=== PATIENT | male | born 1960 | race Caucasian/White ===

== ENCOUNTER → 2023-08-07 08:38 | Outpatient (POV) | payer MEDICARE, SELFPAY ==
--- NOTE | 2023-08-07 08:43 | A.OFFVIS_ITS ---
HPI Data of Consult Patient: new to practice Consult date: 08/07/23 Requesting Physician: Clara Olivares APRN Consult Narrative Reason for consult: Low back pain History of present illness: Mr. Zarate is a 62 year old male who presents today as a new patient. He is a referral from [facility]. Today he rates his pain a 7 out of 10. Patient states his pain is all in his low back with radiating symptoms into his lower extremities. He does describe this as a constant aching, throbbing, sharp sensation with numbness and tingling. He does state that frequently he experiences weakness into his lower extremities and has had multiple falls due to his legs giving out. Patient states this is all related to an injury that he experienced in 1996 where he fell out of a truck. Patient states he did end up having surgery in 1997 on his back having a discectomy as well as knee surgery and lower left leg surgery. Patient states he ended up having a total of 6 left knee surgeries and has chronic pain due to this. Patient has tried [id number] Tylenol and ibuprofen along with heat and ice and topicals with minimal relief. Patient states he did have physical therapy years ago however this worsened his pain. He also states that he has had injections in the past however had no improvement. Patient states that he was with 2 previous pain doctors. He states Dr. Levine office had to close due to not having enough staff and then Dr. Dorman got in trouble and was eventually shut down. Patient is currently on Percocet 10 mg 4 times a day and gabapentin 300 mg 9 times a day from an outside provider. His Sanford has been reviewed. CC: Clara Olivares APRN [facility] Disclaimer: The information contained in this section may have been updated after the patient was seen, as this information can be updated by other users. Medical History (Updated 08/07/23 @ 09:48 by Clara Olivares APRN) Depression GERD (gastroesophageal reflux disease) Gout HLD (hyperlipidemia) HTN (hypertension) Insomnia Surgical History (Updated 08/07/23 @ 09:27 by Pearl Pacheco RN) H/O left knee surgery H/O lumbar discectomy Family History (Updated 08/07/23 @ 09:26 by Pearl Pacheco RN) Other Unknown family medical history Social History Smoking Status: Never smoker alcohol intake: never current occupational status: unemployed Travel in the last 8 weeks: None Review of Systems Review of Systems Review of systems:: pertinent systems reviewed and negative unless documented below Review of systems (narrative): review of Systems: General: No recent weight changes, no fever, no sleep disturbances Respiratory: No cough, no shortness of air, no recurring pulmonary infections Cardiovascular/peripheral vascular: No chest pain, no palpitations, no edema, no shortness of breath Gastrointestinal: No new onset incontinence, normal bowel movements reported Genitourinary: No new onset incontinence Musculoskeletal: Low back pain, bilateral leg pain Psychiatric: [Normal mood/affect] Neurological: [Denies weakness in extremities], [denies balance issues] Meds Home Medications and Allergies Home Medications Medication Instructions Recorded Confirmed Type allopurinol 100 mg tablet 100 mg PO DAILY GOUT 08/07/23 08/07/23 History atorvastatin 20 mg tablet 20 mg PO DAILY High Cholesterol 08/07/23 08/07/23 History bupropion HCl 150 mg 24 hr tablet, 150 mg PO DAILY MOOD 08/07/23 08/07/23 History extended release gabapentin 300 mg capsule 900 mg PO TIDP PRN Pain 08/07/23 08/07/23 History losartan 100 mg tablet 100 mg PO DAILY High Blood Pressure 08/07/23 08/07/23 History metoprolol succinate 50 mg 50 mg PO DAILY High Blood Pressure 08/07/23 08/07/23 History tablet,extended release 24 hr mirtazapine 15 mg tablet 30 mg PO DAILY MOOD 08/07/23 08/07/23 History oxycodone-acetaminophen 10 mg-325 1 tab PO QIDP PRN Pain 08/07/23 08/07/23 History mg tablet pantoprazole 40 mg tablet,delayed 40 mg PO DAILY GERD 08/07/23 08/07/23 History release tizanidine 4 mg tablet 4 mg PO DIRECTED Pain 08/07/23 08/07/23 History trazodone 100 mg tablet 100 mg PO DAILY SLEEP 08/07/23 08/07/23 History New Prescriptions to Start Prescriptions: Allergies Allergy/AdvReac Type Severity Reaction Status Date / Time No Known Allergies Allergy Unverified 07/11/17 14:17 Objective Narrative: Physical Exam: General: Alert and oriented x3, no acute distress, pleasant and cooperative Lungs: Respirations even and unlabored, symmetrical chest expansion Eyes: PERRL Musculoskeletal: Flexion and extension of lumbar [spine] somewhat guarded seco ndary to pain, [antalgic gait noted] extreme point tenderness along lower lumbar region and bilateral SIs Neurological: Speech clear, no gross sensory deficit Additional findings Additional findings: MRI lumbar spine without contrast 12/03/2016 Findings: There is transitional lumbosacral anatomy with residual small intervertebral disc space at S1-S2. S1 will therefore be considered a partially lumbarized vertebral body with a 5 nonrib-bearing morphology typical lumbar type vertebral bodies above this level. There is no fracture. No marrow replacing process. Conus terminates at L1 and distal cord is in the paravertebral soft tissues are normal. T12-L1: No canal or foraminal narrowing. L1-2: Shallow left paracentral disc protrusion mildly effaces the thecal sac without foraminal stenosis. This is minimally changed. L2-3: No canal or foraminal narrowing L3-4: Broad-based disc bulge with endplate osteophytes and mild bilateral facet disease results in mild central canal stenosis with at most mild bilateral narrowing. Modic type II endplate changes are noted at this level. This is similar to previous exam. L4-5: Broad-based disc bulge and mild to moderate bilateral facet disease results in mild canal stenosis with mild bilateral neuroforaminal narrowing unchanged L5-S1: Right paracentral disc protrusion effaces the right lateral recess, likely impinging on the descending right S1 nerve root and contributes to overall mild central canal stenosis. Superimposed moderate right and mild left facet disease. Mild left foraminal narrowing. This appears minimally changed from the previous exam. Assessment and Plan *Assessment and plan (1) Degenerative disc disease, lumbar: Status: Acute Category: Medical Code(s): M51.36 - Other intervertebral disc degeneration, lumbar region (2) Lumbar radiculopathy: Status: Acute Category: Medical Code(s): M54.16 - Radiculopathy, lumbar region (3) Chronic pain syndrome: Status: Acute Category: Medical Code(s): G89.4 - Chronic pain syndrome Plan Patient is experiencing significant pain in his low back and legs with limited range of motion of his lumbar spine and extreme point tenderness along his lower lumbar region and bilateral SIs during today's exam. I have discussed with the patient that he may benefit from injection therapy however he is not interested in this option. I have also gone over the risk and benefits of the intrathecal pain pump trial and educational handouts were given at today's visit. 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 Patient states that he lost his at the end of last year and that his son does not drive. Patient states he has no other family except for in [place] and that his neighbors all work very early in the morning till evening. I have counseled the patient that we are an interventional pain clinic and we do not write any scheduled medications for new patients. Patient will return to clinic in 1 month for reevaluation of symptoms and plan of care. Patient has been instructed to contact the clinic with any concerns before the next appointment. Dr. Presley has reviewed this note and agrees with this plan of care. This note was dictated using voice recognition software and make contain errors or omissions.
--- OUTSIDE RECORDS SUMMARY | 2023-08-07 08:43 | XMS_ITS | Patient Health Record ---
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 They have not been cleared or approved by the US Food and Drug Administration. 6MAM Ur Ql Cfm <10 >=10 ng/mL NONE DETECTED Amphetamines Ur Ql Cfm <100 >=100 ng/mL NONE DETECTED Benzodiaz Ur Ql Cfm <50 >=50 ng/mL NONE DET ECTED Buprenorphine Ur Ql Cfm <1 >=1 ng/mL NONE DETECTED BZE Ur Ql Cfm <50 >=50 ng/mL NONE DETECTED Fentanyl+Norfentanyl Ur Ql Cfm <5 >=5 ng/mL NONE DETECTED Carisoprodol+Meprob Ur Ql Scn <200 >=200 ng/mL NONE DETECTED Methadone Ur Ql Cfm <200 >=200 ng/mL NONE DET ECTED Opiates Ur Ql Cfm >=100 >=100 ng/mL POSITIVE Oxymorphone Ur Cfm-mCnc 743 >=100 ng/mL POSI TIVE Noroxycodone Ur Cfm-mCnc 338 >=100 ng/mL POS ITIVE Oxycodone Ur Cfm-mCnc 596 >=100 ng/mL POSITI VE REASON FOR REFERRAL Reason SURGICAL EVAL OF LUM BAR SPINE Diagnosis 1 Lumbar spondylosis ( M47.816) Referral Organization [facility] Referring Provider First Name Sharona Referring Provider Last Name Bruno Referring Provider Speciality Nurse Malika diaz Referred Provider Alexei Barrera Referred Provider Specialty Orthopedic S urgery Referral Priority Routine MEDICATIONS Medication SIG (Take, Route, Frequency, Duration) Notes Start Date End Date Status Atorvastatin Calcium 10 MG 1 tablet Orally Once a day for 30 day(s) Active traZODone HCl 50 MG 1 tablet at bedtime as needed Orally Once a day for 30 day(s) Active Pantoprazole Sodium 20 MG 1 tablet Orall y Once a day for 30 day(s) Active tiZANidine HCl 2 MG 1 tablet as needed Orally Three times a day Active Allopurinol 100 MG 1 tablet Orally Once a day for 30 day(s) Active Aspirin 81 MG 1 tablet Orally Once a day for 30 day(s) Active Losartan Potassium 25 MG 1 tablet Orally Once a day for 30 day(s) Active Tylenol 8 Hour 650 MG 2 tablets as neede d Orally every 8 hrs PRN Active Metoprolol Succinate 25 MG 1 capsule Orally Once a day for 30 day(s) Active Gabapentin 100 MG 1 capsule Orally Onc e a day for 30 day(s) Active Mirtazapine 15 MG 1 tablet at bedtime Orally Once a day for 30 day(s) Active Aleve 220 MG 1 tablet with food o r milk as needed Orally every 12 hrs Active oxyCODONE HCl 10 MG 1 tablet as needed Orally every 6 hrs 4X PER DAY Active SOCIAL HISTORY Sex Assigned At : Social History Observation Description Sex Assigned At Unknown PROBLEMS Problem Type ICD Code Onset Dates Problem Status W/U Status Risk SNOMED Code Notes Problem Chronic pain syndrome (G89.4) Active confirmed 510743656 Problem Degeneration of lumbar or lumbosacral intervertebral disc (M51.37) Active confirmed 24436347 Problem Lumbar spondylosis (M47.816) Active confirmed 912901105 Problem Continuous opioid dependence (F11.20) Active confirmed 267720161 VITAL SIGNS Heart Rate 74 /min 06/22/2023 Oximetry 96 % 06/22/2023 Blood pressure diastolic 94 mm Hg 06/22/2023 Height 70 in 06/22/2023 Blood pressure systolic 165 mm Hg 06/22/2023 Weight 245.4 lbs 06/22/2023 BMI 35.21 kg/m2 06/22/2023 Encounters Encounter Location Date Provider Diagnosis [facility] [address] [address] 06/22/2023 Sharona Bruno Lumbar spondylosis M47.816 ; Degeneration of lumbar or lumbosacral intervertebral disc M51.37 ; Pain, joint, knee, left M25.562 ; Chronic pain syndrome G89.4 and Continuous opioid dependence F11.20 ASSESSMENTS Encounter Date Diagnosis Assessment Notes Treatment Notes Treatment Clinical Notes 06/22/2023 Degeneration of lumbar or lumbosacral intervertebral disc (ICD-10 - M51.37) 06/22/2023 Lumbar spondylosis (ICD-10 - M47.816) 06/22/2023 Pain, joint, knee, left (ICD-10 - M25.562) 06/22/2023 Chronic pain syndrom e (ICD-10 - G89.4) 06/22/2023 Continuous opioid dependence (ICD-10 - F11.20) 06/22/2023 Other ORDER MRI LUMBAR IMAGING AND PLACE REFERRAL TO DR BARRERA FOR SURGICAL OPINION. Former patient of [facility]PS with Dr. Hernandez and Abner. Recommended PT for him. Continue HOME EXERCISE PROGRAM. SCS Info given to him along with ITP info. He states that he tried SCS with David and did not get any relief. He is not interested in procedures. He has never had surgical eval since having one surgery with Dr. Roldan. Uncertain what level operated on. He is on Percocet 10/325mg QID and Gabapentin 300mg 3 TID. No recent imaging other than Cervical Xray from 2019. MRI order from 2017. This does not warrant opioid Rx currently. UDS and Sanford performed. He states that his 2 months ago. He is not a good candidate for PPSC. Seen in consultation today with BAO Sarabia with care plan and medications reviewed by Dr. Martin. PLAN OF TREATMENT Pending Test Test Name Order Date [employer] [facility] Profile 06/22/2023 MRI LUMBAR SPINE WO CONTRAST 06/22/2023 Insurance Providers Payer Name Payer Address Payer Phone Subscriber Number Group Number Insured Name Patient Relationship to Insured Coverage Start Date Coverage End Date [employer] [address] [address] [place] [phone] [id number] Robert Zarate Self - patient is the insured 3 Medicare CGS Administrators [address] [phone] [id number] Robert Zarate Self - patient is the insured MEDICAL (GENERAL) HISTORY Medical History History ICD Code ARTHRITIS DEPRESSION ANXIETY HIGH BLOOD PRESSURE HIGH CHOLESTEROL Surgical History Surgery Date(Month/Year) GALLBLADDER BACK SURGERY 1998 LEFT KNEE SURGERY X6 1998
[2023-08-07 09:23] VITALS: BP 167/100; PULSE 78; RESP 18; O2SAT 95; BMI 33.7
== END ==
PROVIDERS: Visit Provider Nurse Practitioner Family
DX: G89.4 Chronic pain syndrome; M51.16 Intervertebral disc disorders with radiculopathy, lumbar region
CPT/HCPCS: 99202; G0463

== ENCOUNTER → 2023-09-14 08:20 | Outpatient (POV) | payer MEDICARE, SELFPAY ==
--- NOTE | 2023-09-14 08:59 | EXP.PAIN.SOA ---
[facility] Pain Management SOAP Note Subjective:: Patient is a pleasant 62-year-old male who presents today for follow-up. We are currently treating the patient for degenerative disc disease of lumbar spine with lumbar radiculopathy symptoms, lumbar spinal stenosis low back pain, chronic pain syndrome. Today he rates his pain a 9 out of 10. Patient denies any new injury or trauma. He states he continues to have constant pain at his low back that does interfere with his ability perform activities of daily living such as cooking and cleaning. Patient does have prior back surgery as well as trying and failing conservative treatment such as oral medication, heat and ice, topicals, physical therapy. Patient is prescribed Percocet 10 mg 4 times a day and gabapentin 300 mg 9 times a day from outside provider. He states this just helps take the edge off but does not really do a good job overall. His Sanford has been reviewed and is appropriate. Review of Systems: General: No recent weight changes, no fever, no sleep disturbances Respiratory: No cough, no shortness of air, no recurring pulmonary infections Cardiovascular/peripheral vascular: No chest pain, no palpitations, no edema, no shortness of breath Gastrointestinal: No new onset incontinence, normal bowel movements reported Genitourinary: No new onset incontinence Musculoskeletal: Low back pain Psychiatric: [Normal mood/affect] Neurological: [Denies weakness in extremities], [denies balance issues] Objective:: Physical Exam: General: Alert and oriented x3, no acute distress, pleasant and cooperative Lungs: Respirations even and unlabored, symmetrical chest expansion Eyes: PERRL Musculoskeletal: Flexion and extension of lumbar [spine] somewhat guarded secondary to pain, [antalgic gait noted] Neurological: Speech clear, no gross sensory deficit Assessment:: Degenerative disc disease of lumbar spine with lumbar radiculopathy symptoms, lumbar spinal stenosis, chronic pain syndrome Plan:: Patient continues to experience significant pain throughout his low back with limited range of motion. Patient has had previous back surgery as well is failing conservative treatment options. I have discussed with patient regarding the intrathecal pain pump trial and at our last visit he was not sure he could proceed forward with this not to having any close family that could help provide assistance for rides of care. Today he does state that his cousin and independence has told him that he can help during this time. I have reviewed back over again the risk and benefits of the pump trial and he would like to proceed forward. We will order a psychological evaluation and if he is deemed an appropriate candidate we will proceed forward with a trial at a future date. Patient will return to clinic in 1 month for reevaluation of symptoms and plan of care. Patient has been instructed to contact the clinic with any concerns before the next appointment. Dr. Presley has reviewed this note and agrees with this plan of care. This note was dictated using voice recognition software and make contain errors or omissions. [facility] Disclaimer: The information contained in this section may have been updated after the patient was seen, as this information can be updated by other users. Medical History (Updated 08/07/23 @ 09:48 by Clara Olivares APRN) Depression GERD (gastroesophageal reflux disease) Gout HLD (hyperlipidemia) HTN (hypertension) Insomnia Surgical History (Updated 08/07/23 @ 09:27 by Pearl Pacheco RN) H/O left knee surgery H/O lumbar discectomy Family History (Updated 08/07/23 @ 09:26 by Pearl Pacheco RN) Other Unknown family medical history Social History (Updated 08/07/23 @ 09:28 by Pearl Pacheco RN) Smoking Status: Never smoker alcohol intake: never current occupational status: unemployed Travel in the last 8 weeks: None
[2023-09-14 09:07] VITALS: BP 142/76; PULSE 81; RESP 18; O2SAT 97; BMI 33.7
== END ==
PROVIDERS: PCP Nurse Practitioner Family; Visit Provider Nurse Practitioner Family
DX: M51.16 Intervertebral disc disorders with radiculopathy, lumbar region (principal); M48.061 Spinal stenosis, lumbar region without neurogenic claudication; G89.4 Chronic pain syndrome
CPT/HCPCS: 99212; G0463

== ENCOUNTER 2023-11-30 12:47 | Outpatient (POV) | payer MEDICARE, SELFPAY ==
--- NOTE | 2023-11-30 13:16 | EXP.PAIN.SOA ---
[facility] Pain Management SOAP Note Subjective:: Patient is a pleasant 63-year-old male who presents today for follow-up of psychological evaluation. We are currently treating the patient for degenerative disc disease of lumbar spine with lumbar radiculopathy symptoms, lumbar spinal stenosis low back pain, chronic pain syndrome. Today he rates his pain a 7 out of 10. Patient denies any new injury or trauma. He continues to have chronic pain at his low back. He states that it does interfere with his ability perform activities of daily living such as cooking and cleaning. Patient does have prior back surgery as well as trying and failing conservative treatment such as oral medication, heat and ice, topicals, physical therapy. He does state that he reviewed over the pump pamphlet and has no questions and would like to proceed forward with this option. He does state that he is scheduled for upcoming surgery on Monday and that he will have to heal from this procedure before proceeding forward with the pump trial. Patient is prescribed Percocet 10 mg 4 times a day and gabapentin 300 mg 9 times a day from outside provider. His Sanford has been reviewed and is appropriate. Review of Systems: General: No recent weight changes, no fever, no sleep disturbances Respiratory: No cough, no shortness of air, no recurring pulmonary infections Cardiovascular/peripheral vascular: No chest pain, no palpitations, no edema, no shortness of breath Gastrointestinal: No new onset incontinence, normal bowel movements reported Genitourinary: No new onset incontinence Musculoskeletal: Low back pain Psychiatric: [Normal mood/affect] Neurological: [Denies weakness in extremities], [denies balance issues] Objective:: Physical Exam: General: Alert and oriented x3, no acute distress, pleasant and cooperative Lungs: Respirations even and unlabored, symmetrical chest expansion Eyes: PERRL Musculoskeletal: Flexion and extension of lumbar [spine] somewhat guarded secondary to pain, [antalgic gait noted] Neurological: Speech clear, no gross sensory deficit Assessment:: degenerative disc disease of lumbar spine with lumbar radiculopathy symptoms, lumbar spinal stenosis low back pain, chronic pain syndrome Plan:: Patient continues to experience chronic pain in his low back with limited range of motion of his lumbar spine. I did review over the psychological evaluation results and that he was deemed an appropriate candidate for this device. I reviewed the risk and benefits of the intrathecal pump trial and he would like to proceed forward with this plan of care. We will plan on submitting for the intrathecal pain pump trial and plan for a month or so extra time for him healing from his upcoming surgery. We will contact the patient once we have officially have insurance approval for date and time of the pump trial. Patient states he is not on any blood thinners however he is on an aspirin that he did have to stop this for his upcoming procedure. I have counseled the patient to let us know if he gets put on any blood thinners other than a baby aspirin that he will have to stop this medication for the intrathecal pump trial. Patient has tried and failed conservative therapies including continued at home stretching and exercise for longer than 6 weeks with minimal improvement. Patient has been instructed to contact the clinic with any concerns before the next appointment. Dr. Presley has reviewed this note and agrees with this plan of care. This note was dictated using voice recognition software and make contain errors or omissions. [facility] Disclaimer: The information contained in this section may have been updated after the patient was seen, as this information can be updated by other users. Medical History (Updated 11/10/23 @ 16:44 by Imelda Samuels [facility]) HLD (hyperlipidemia) GERD (gastroesophageal reflux disease) Insomnia HTN (hypertension) Depression Gout Surgical History (Updated 08/07/23 @ 09:27 by Pearl Pacheco RN) H/O left knee surgery H/O lumbar discectomy Family History (Updated 08/07/23 @ 09:26 by Pearl Pacheco RN) Other Unknown family medical history Social History (Updated 08/07/23 @ 09:28 by Pearl Pacheco RN) Smoking Status: Never smoker alcohol intake: never current occupational status: unemployed Travel in the last 8 weeks: None
[2023-11-30 14:12] VITALS: BP 175/88; PULSE 72; RESP 18; O2SAT 96; BMI 33.3
== END 2023-11-30 23:59 | disposition home or self-care (01) ==
LOC: SC.PAIN 12:49
PROVIDERS: Visit Provider Nurse Practitioner Family
DX: M51.16 Intervertebral disc disorders with radiculopathy, lumbar region (principal); M48.061 Spinal stenosis, lumbar region without neurogenic claudication; G89.4 Chronic pain syndrome
CPT/HCPCS: 99212; G0463